=== PATIENT | male | born 1950 | race Caucasian/White ===

== ENCOUNTER 2025-07-04 15:45 | Inpatient (IN) | payer MEDICARE, OTHER ==
[~2025-07-04] VITALS: Ht 170.2 cm; Wt 97.1 kg
[2025-07-04] MEDS ORDERED: ONDANSETRON HCL/PF 4 MG/2 ML VIAL IVP PRN (16:00)
[2025-07-04] MEDS ORDERED: hydrALAZINE HCL IV 20 MG VIAL IV PRN (16:00)
[2025-07-04 16:23] LABS: PLATELET COUNT (AUTO) 113 K/uL (150-450); RED BLOOD CELL COUNT(AUTO) 4.08 MIL/uL (4.5-6.0); RED CELL DISTRIBUTION WIDTH 15.9 % (11.5-15.0); WHITE BLOOD COUNT (AUTO) 5.9 K/uL (4.3-11.0)
[2025-07-04] MEDS ORDERED: TICA90TA PO (16:23)
[2025-07-04] MEDS ORDERED: ALLO100T PO (16:23)
[2025-07-04] MEDS ORDERED: MAGN400O6 PO (16:23)
[2025-07-04] MEDS ORDERED: ACET-73 PO (16:23)
[2025-07-04] MEDS ORDERED: HYDR-4076 PO (16:23)
[2025-07-04] MEDS ORDERED: NA P133E RC (16:23)
[2025-07-04] MEDS ORDERED: METO-357 PO (16:23)
[2025-07-04] MEDS ORDERED: DAPA5TAB PO (16:23)
[2025-07-04] MEDS ORDERED: ATOR40TA PO (16:23)
[2025-07-04] MEDS ORDERED: ONDA4TAB5 PO (16:23)
[2025-07-04] MEDS ORDERED: CHOL200076 PO (16:23)
[2025-07-04] MEDS ORDERED: FURO-145 PO (16:23)
[2025-07-04] MEDS ORDERED: EMPA10TA PO (16:23)
[2025-07-04] MEDS ORDERED: GABA-532 PO (16:23)
[2025-07-04] MEDS ORDERED: ALBUTEROL-BUDESONIDE IH (16:23)
[2025-07-04] MEDS ORDERED: PANT40TA49 PO (16:23)
[2025-07-04] MEDS ORDERED: RANO10005 PO (16:23)
[2025-07-04] MEDS ORDERED: ALBUTEROL SULFATE IH (16:23)
[2025-07-04] MEDS ORDERED: TAMS-12 PO (16:23)
[2025-07-04] MEDS ORDERED: ZIPR20CA2 PO (16:23)
[2025-07-04] MEDS ORDERED: ACET325T53 PO (16:23)
[2025-07-04] MEDS ORDERED: CLOP75TA15 PO (16:23)
[2025-07-04] MEDS ORDERED: BISA10SU61 RC (16:23)
[2025-07-04] MEDS ORDERED: MULT-213 PO (16:23)
[2025-07-04 16:29] LABS: CALCIUM, SERUM 8.7 mg/dL (8.5-10.1); CREATININE 2.3 mg/dL (0.6-1.3); SODIUM SERUM 139 mmol/L (136-145); UREA NITROGEN, BLOOD 39 mg/dL (7-18)
[2025-07-04 16:34] LABS: ASPARTATE AMINOTRANSFERASE 34 U/L (15-37); TOTAL PROTEIN, SERUM 7.2 g/dL (6.4-8.2)
[2025-07-04 16:53] LABS: LDL 75 mg/dL (0-99)
[2025-07-04 17:00] VITALS: BP 129/71; TEMP 97.7; O2SAT 100
[2025-07-04] MEDS: DOCUSATE SODIUM LIQ 100 MG/10 ML UDC PO SCH (18:00)
[2025-07-04] MEDS: ACETAMINOPHEN 325 MG TABLET PO PRN (19:01)
[2025-07-04 20:00] VITALS: BP 107/69; TEMP 97.7; O2SAT 98
[2025-07-04] MEDS: ATORVASTATIN 40 MG TABLET PO SCH (21:54)
[2025-07-04] MEDS: TAMSULOSIN 0.4 MG CAP.SR.24H PO SCH (21:54)
[2025-07-04] MEDS: HEPARIN SODIUM, PORCINE 5000 UNITS/1 ML VIAL SQ SCH (21:55)
[2025-07-05] MEDS: MORPHINE SULFATE INJ 2 MG/ML DISP.SYRIN IV PRN (05:40)
[2025-07-05 06:47] LABS: PLATELET COUNT (AUTO) 97 K/uL (150-450); RED BLOOD CELL COUNT(AUTO) 3.98 MIL/uL (4.5-6.0); RED CELL DISTRIBUTION WIDTH 15.8 % (11.5-15.0); WHITE BLOOD COUNT (AUTO) 4.0 K/uL (4.3-11.0)
[2025-07-05 07:01] LABS: ASPARTATE AMINOTRANSFERASE 28.0 U/L (15-37); CALCIUM, SERUM 8.6 mg/dL (8.5-10.1); CREATININE 2.2 mg/dL (0.6-1.3); PHOSPHORUS 4.1 mg/dL (2.5-4.9); SODIUM SERUM 141.0 mmol/L (136-145); TOTAL PROTEIN, SERUM 6.9 g/dL (6.4-8.2); UREA NITROGEN, BLOOD 43.0 mg/dL (7-18)
[2025-07-05 08:00] VITALS: BP 126/80; TEMP 97.7; O2SAT 98
[2025-07-05] MEDS: EMPAGLIFLOZIN 10 MG TABLET PO SCH (08:16)
[2025-07-05] MEDS: PANTOPRAZOLE 40 MG TABLET.DR PO SCH (08:16)
[2025-07-05] MEDS: POLYETHYLENE GLYCOL 3350 17 GM POWD.PACK PO SCH (08:17)
[2025-07-05] MEDS: FUROSEMIDE 20 MG TABLET PO SCH (08:17)
[2025-07-05] MEDS: ALLOPURINOL 100 MG TABLET PO SCH (08:17)
[2025-07-05] MEDS: GABAPENTIN 100 MG CAPSULE PO SCH (08:17)
[2025-07-05] MEDS: METOPROLOL SUCCINATE 50 MG TAB.SR.24H PO SCH (08:21)
[2025-07-05] MEDS: TICAGRELOR 90 MG TABLET PO SCH (08:24)
[2025-07-05] MEDS: ZIPRASIDONE 20 MG CAPSULE PO SCH (08:24)
[2025-07-05] MEDS: RANOLAZINE 500 MG TAB.ER.12H PO SCH (09:06)
[2025-07-05 13:22] LABS: EOSINOPHILS % (MANUAL) 5 % (0-4); LYMPHOCYTES % (MANUAL) 13 % (16-48); MONOCYTES % (MANUAL) 6 % (0-11.0); NEUTROPHILS % (MANUAL) 76 (42-76); PLATELET ESTIMATE DECREASED
[2025-07-05 16:00] VITALS: BP 121/75; TEMP 97.5; O2SAT 100
[2025-07-05 20:00] VITALS: BP 128/72; TEMP 97.5; O2SAT 97
[2025-07-06 07:00] VITALS: BP 112/76; TEMP 97.5; O2SAT 100
[2025-07-06 08:01] LABS: CREATINE KINASE, TOTAL 148.0 U/L (39-308)
[2025-07-06 08:04] LABS: PLATELET COUNT (AUTO) 101 K/uL (150-450); RED BLOOD CELL COUNT(AUTO) 3.81 MIL/uL (4.5-6.0); RED CELL DISTRIBUTION WIDTH 15.7 % (11.5-15.0); WHITE BLOOD COUNT (AUTO) 3.6 K/uL (4.3-11.0)
[2025-07-06 08:07] LABS: ASPARTATE AMINOTRANSFERASE 21.0 U/L (15-37); CALCIUM, SERUM 8.5 mg/dL (8.5-10.1); CREATININE 1.7 mg/dL (0.6-1.3); PHOSPHORUS 4.5 mg/dL (2.5-4.9); SODIUM SERUM 142.0 mmol/L (136-145); TOTAL PROTEIN, SERUM 6.5 g/dL (6.4-8.2); UREA NITROGEN, BLOOD 38.0 mg/dL (7-18)
[2025-07-06 16:00] VITALS: BP 133/72; TEMP 97.3; O2SAT 99
[2025-07-06 20:00] VITALS: BP 125/77; TEMP 97.5; O2SAT 98
[2025-07-07 05:50] VITALS: O2SAT 98
[2025-07-07 06:32] LABS: PLATELET COUNT (AUTO) 97 K/uL (150-450); RED BLOOD CELL COUNT(AUTO) 3.86 MIL/uL (4.5-6.0); RED CELL DISTRIBUTION WIDTH 15.6 % (11.5-15.0); WHITE BLOOD COUNT (AUTO) 3.7 K/uL (4.3-11.0)
[2025-07-07 07:01] LABS: CALCIUM, SERUM 8.6 mg/dL (8.5-10.1); CREATININE 1.8 mg/dL (0.6-1.3); PHOSPHORUS 3.9 mg/dL (2.5-4.9); SODIUM SERUM 142.0 mmol/L (136-145); UREA NITROGEN, BLOOD 32.0 mg/dL (7-18)
[2025-07-07 07:07] LABS: PTH, INTACT 26 pg/mL (15-65)
[2025-07-07 08:00] VITALS: BP 136/69; TEMP 97.7; O2SAT 99
[2025-07-07 08:52] VITALS: BP 139/69
[2025-07-07 10:12] LABS: *SPE A/G RATIO 1.4 (0.7-1.7); *SPE ALBUMIN 3.6 g/dL (2.9-4.4); *SPE ALPHA-1-GLOBULIN 0.2 g/dL (0.0-0.4); *SPE ALPHA-2-GLOBULIN 1.0 g/dL (0.4-1.0); *SPE BETA GLOBULIN 0.9 g/dL (0.7-1.3); *SPE GLOBULIN, TOTAL 2.6 g/dL (2.2-3.9); *SPE M-SPIKE Not Observed g/dL (Not Observed); *SPE PROTEIN TOTAL 6.2 g/dL (6.0-8.5); *SPEGAMMA GLOBULIN 0.6 g/dL (0.4-1.8)
[2025-07-07 12:00] LABS: EOSINOPHILS % (MANUAL) 3 % (0-4); LYMPHOCYTES % (MANUAL) 33 % (16-48); MONOCYTES % (MANUAL) 10 % (0-11.0); NEUTROPHILS % (MANUAL) 54 (42-76); PLATELET ESTIMATE DECREASED
== END 2025-07-07 13:50 | DRG 554 ==
LOC: ER 15:50 → MED 17:16
PROVIDERS: ADMIT Internal Medicine; ATTEND Internal Medicine
DX: M16.0 Bilateral primary osteoarthritis of hip (principal); N17.9 Acute kidney failure, unspecified; I12.9 Hypertensive chronic kidney disease with stage 1 through stage 4 chronic kidney disease, or unspecified chronic kidney disease; N18.9 Chronic kidney disease, unspecified; D64.9 Anemia, unspecified; M25.552 Pain in left hip; M25.551 Pain in right hip; E78.5 Hyperlipidemia, unspecified; I25.10 Atherosclerotic heart disease of native coronary artery without angina pectoris; R29.6 Repeated falls; Z79.84 Long term (current) use of oral hypoglycemic drugs; Z95.5 Presence of coronary angioplasty implant and graft; R53.1 Weakness; E83.89 Other disorders of mineral metabolism
CPT/HCPCS: 36415; 73521; 76770-TC; 80048-TC; 80053-TC; 80061-TC; 82550-TC; 83735-TC; 83970; 84100-TC; 84155; 84165; 84439-TC; 84443-TC; 85025-TC; 85027-TC; 87081-TC; 94799-TC; 97110-TC; 97116-TC; 97530-TC; G0378; J1644; J2270